=== PATIENT | female | born 1980 | race Caucasian/White ===

== ENCOUNTER 2018-02-03 13:14 | Emergency (ER) | payer MEDICARE ==
[~2018-02-03] VITALS: Ht 167.6 cm; Wt 126.0 kg
[2018-02-03] MEDS ORDERED: NITROGLYCERIN SUBLINGUAL 0.4 MG BOTTLE OF 25. SL PRN (13:30)
--- NOTE | 2018-02-03 13:50 | RAD ---
EXAM: CHEST 1 VIEW History: Chest pain COMPARISON: 01/14/2012 TECHNIQUE: Single portable radiograph of the chest FINDINGS: Low lung volumes and technique accentuates heart size and pulmonary vascularity. Mild cardiomegaly. Left-sided cardiac pacer is unchanged. The lungs appear clear. IMPRESSION: No radiographic evidence of an acute cardiopulmonary process. Electronically signed by: Vinod Mclaughlin MD (02/03/2018 1:46 PM) [id number]
[2018-02-03 13:57] LABS: BASO # 0.4 x10^3/uL (0.0-0.2); BASO % 3 % (0-3); EOS # 0.5 x10^3/uL (0.0-0.7); EOS % 4 % (0-3); HEMATOCRIT 42.2 % (36.0-47.0); HEMOGLOBIN 14.3 g/dL (12.0-15.5); LYMPH % 28 % (24-48); MEAN CORPUSCULAR HEMOGLOBIN 29 pg (25-35); MEAN CORPUSCULAR HGB CONC 34 g/dL (31-37); MEAN CORPUSCULAR VOLUME 86 fL (79-100); MONO # 0.9 x10^3/uL (0.0-1.1); MONO % 8 % (0-9); NEUT # 6.1 x10^3uL (1.8-7.7); NEUT % 56 % (31-73); PLATELET COUNT 372 x10^3/uL (140-400); RED BLOOD COUNT 4.94 x10^6/uL (3.50-5.40); RED CELL DISTRIBUTION WIDTH 13.9 % (11.5-14.5); WHITE BLOOD COUNT 10.7 x10^3/uL (4.0-11.0)
[2018-02-03 14:11] LABS: ALBUMIN 3.9 g/dL (3.4-5.0); ALBUMIN/GLOBULIN RATIO 0.8 (1.0-1.7); CALCIUM 9.7 mg/dL (8.5-10.1); CREATININE 0.9 mg/dL (0.6-1.0); GFR 70.1; MAGNESIUM 1.8 mg/dL (1.8-2.4); TOTAL BILIRUBIN 0.5 mg/dL (0.2-1.0); TOTAL PROTEIN 8.7 g/dL (6.4-8.2)
[2018-02-03 14:23] LABS: % BASOS 1 % (0-3); % EOS 4 % (0-5); % LYMPHS 20 % (24-48); % MONOS 12 % (0-10); % SEGS 60 % (35-66); PLT ESTIMATE INCREASED (ADEQUATE)
[2018-02-03 14:25] LABS: % ATYL 3 % (0-0)
[2018-02-03 15:17] VITALS: BP 118/56
--- NOTE | 2018-02-03 15:33 | PHYS DOC ---
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 Patient complaining of shortness of breath, dizziness, patient with episodes of chest pain that usually lasts about 2 seconds and reported every 2 minutes. Patient denies fever and chills, cough and congestion, focal neuro deficit. Patient states she has had episodes of chest pain frequently but today her chest pain was more frequent than her usual. Patient rated the pain 6/10 that decreased to 4/10 at arrival to ER. Review of Systems Review of Systems Constitutional: Denies fever or chills [] Eyes: Denies change in visual acuity, redness, or eye pain [] HENT: Denies nasal congestion or sore throat [] Respiratory: Denies cough, reports shortness of breath [] Cardiovascular: No additional information not addressed in HPI [] GI: Denies abdominal pain, nausea, vomiting, bloody stools or diarrhea [] : Denies dysuria or hematuria [] Musculoskeletal: Denies back pain or joint pain [] Integument: Denies rash or skin lesions [] Neurologic: Denies headache, focal weakness or sensory changes [] Endocrine: Denies polyuria or polydipsia [] All other systems were reviewed and found to be within normal limits, except as documented in this note. Current Medications Current Medications Current Medications Medications (Trade) Dose Ordered Sig/Brandin Start Time Stop Time Status Last Admin Dose Admin Nitroglycerin (Nitrostat) 0.4 mg PRN Q5MIN PRN 02/03/18 13:30 02/04/18 13:29 02/03/18 13:55 0.4 MG Allergies Allergies Allergies Coded Allergies Type Severity Reaction Last Updated Verified No Known Drug Allergies 02/03/18 No Physical Exam Physical Exam Constitutional: Well developed, well nourished, no acute distress, non-toxic appearance. [] HENT: Normocephalic, atraumatic, bilateral external ears normal, oropharynx moist, no oral exudates, nose normal. [] Eyes: PERRLA, EOMI, conjunctiva normal, no discharge. [] Neck: Normal range of motion, no tenderness, supple, no stridor. [] Cardiovascular:Heart rate regular rhythm, no murmur [] Lungs & Thorax: Bilateral breath sounds clear to auscultation, reproducible substernal pain [] Abdomen: Bowel sounds normal, soft, no tenderness, no masses, no pulsatile masses. [] Skin: Warm, dry, no erythema, no rash. [] Back: No tenderness, no CVA tenderness. [] Extremities: No tenderness, no cyanosis, no clubbing, ROM intact, no edema. [] Neurologic: Alert and oriented X 3, normal motor function, normal sensory function, no focal deficits noted. [] Psychologic: Affect normal, judgement normal, mood normal. [] Current Patient Data Vital Signs Vital Signs Date Time Temp Pulse Resp B/P (MAP) Pulse Ox O2 Delivery O2 Flow Rate FiO2 02/03/18 13:55 60 128/65 Lab Results Laboratory Tests Test 02/03/18 13:33 White Blood Count 10.7 x10^3/uL (4.0-11.0) Red Blood Count 4.94 x10^6/uL (3.50-5.40) Hemoglobin 14.3 g/dL (12.0-15.5) Hematocrit 42.2 % (36.0-47.0) Mean Corpuscular Volume 86 fL (79-100) Mean Corpuscular Hemoglobin 29 pg (25-35) Mean Corpuscular Hemoglobin Concent 34 g/dL (31-37) Red Cell Distribution Width 13.9 % (11.5-14.5) Platelet Count 372 x10^3/uL (140-400) Neutrophils (%) (Auto) 56 % (31-73) Lymphocytes (%) (Auto) 28 % (24-48) Monocytes (%) (Auto) 8 % (0-9) Eosinophils (%) (Auto) 4 % (0-3) H Basophils (%) (Auto) 3 % (0-3) Neutrophils # (Auto) 6.1 x10^3uL (1.8-7.7) Lymphocytes # (Auto) 3.0 x10^3/uL (1.0-4.8) Monocytes # (Auto) 0.9 x10^3/uL (0.0-1.1) Eosinophils # (Auto) 0.5 x10^3/uL (0.0-0.7) Basophils # (Auto) 0.4 x10^3/uL (0.0-0.2) H Segmented Neutrophils % 60 % (35-66) Lymphocytes % 20 % (24-48) L Atypical Lymphocytes % (Manual) 3 % (0-0) H Monocytes % 12 % (0-10) H Eosinophils % 4 % (0-5) Basophils % 1 % (0-3) Platelet Estimate Increased (ADEQUATE) Large Platelets Occ Prothrombin Time 10.9 SEC (9.4-11.4) Prothrombin Time INR 1.1 (0.9-1.1) D-Dimer (Bethanie) 0.44 mg/L (0.00-0.50) Sodium Level 140 mmol/L (136-145) Potassium Level 4.0 mmol/L (3.5-5.1) Chloride Level 106 mmol/L (98-107) Carbon Dioxide Level 24 mmol/L (21-32) Anion Gap 10 (6-14) Blood Urea Nitrogen 12 mg/dL (7-20) Creatinine 0.9 mg/dL (0.6-1.0) Estimated GFR (Cockcroft-Gault) 70.1 BUN/Creatinine Ratio 13 (6-20) Glucose Level 90 mg/dL (70-99) Calcium Level 9.7 mg/dL (8.5-10.1) Magnesium Level 1.8 mg/dL (1.8-2.4) Total Bilirubin 0.5 mg/dL (0.2-1.0) Aspartate Amino Transferase (AST) 23 U/L (15-37) Alanine Aminotransferase (ALT) 26 U/L (14-59) Alkaline Phosphatase 69 U/L (46-116) Creatine Kinase 99 U/L (26-192) Creatine Kinase MB (Mass) 0.8 ng/mL (0.0-3.6) Creatine Kinase MB Relative Index 0.8 % (0-4) Troponin I Quantitative < 0.017 ng/mL (0-0.055) JM-Bad-W-Type Natriuretic Peptide 165 pg/mL (0-124) H Total Protein 8.7 g/dL (6.4-8.2) H Albumin 3.9 g/dL (3.4-5.0) Albumin/Globulin Ratio 0.8 (1.0-1.7) L Lipase 299 U/L (73-393) EKG EKG EKG interpreted by me. EKG at 1324 showed normal sinus rhythm at rate of 60, abnormal right axis deviation, RVH, inverted T in anteroseptal leads, no acute ST and T-wave abnormalities.[] Radiology/Procedures Radiology/Procedures [][address] [address] IMAGING REPORT Signed PATIENT: WM SHAFFER ACCOUNT: [id number] : 1980 LOCATION: ER AGE: 37 SEX: F EXAM STATUS: REG ER ORD. PHYSICIAN: KISHA SINGER MD REASON: chest pain PROCEDURE: PORTABLE CHEST 1V EXAM: CHEST 1 VIEW History: Chest pain COMPARISON: 01/14/2012 TECHNIQUE: Single portable radiograph of the chest FINDINGS: Low lung volumes and technique accentuates heart size and pulmonary vascularity. Mild cardiomegaly. Left-sided cardiac pacer is unchanged. The lungs appear clear. IMPRESSION: No radiographic evidence of an acute cardiopulmonary process. 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 Patient did not have any cardiac risk factor and had unremarkable labs including d-dimer. Patient was seen by her deputy editor in chief on December 31 with unremarkable evaluation. Patient instructed to to follow up with Dr. Scott her deputy editor in chief in 3-5 days and return to ER if not getting better. Dragon Disclaimer Dragon Disclaimer This electronic medical record was generated, in whole or in part, using a voice recognition dictation system. Departure Departure: Impression: Primary Impression: Musculoskeletal chest pain Additional Impression: Transposition of great vessels Disposition: HOME, SELF-CARE (at 1530) Condition: IMPROVED Referrals: DELFINA GRAY (PCP) MAGED SCOTT MD Patient Instructions: Musculoskeletal Pain Additional Instructions: Follow-up with your deputy editor in chief in 2 or 3 days Return to ER if not getting better Problem Qualifiers KISHA SINGER MD Feb 03, 2018 15:33
--- NOTE | 2018-02-04 06:43 | EKG ---
[address] [address] Test Date: 2018-02-03 Test Time: 13:24:01 Pat Name: WM SHAFFER Department: Room: Gender: F Mangle Tender Cloth: : 1980 Requested By: KISHA SINGER Order Number: [id number] Reading MD: Rafael Scott MD Measurements Intervals [place] Rate: 60 P: 0 OR: 204 QRS: 126 QRSD: 102 T: 51 QT: 426 QTc: 430 Interpretive Statements SUSPECT SINUS RHYTHM JUNCTIONAL RHYTHM CANNOT BE RULED OUT Electronically Signed On 02-06-2018 15:15:48 CDT by Rafael Scott MD
== END 2018-02-03 16:08 | disposition home or self-care (01) ==
LOC: ER 13:14
DX: R07.2 Precordial pain (principal); R42 Dizziness and giddiness; Q20.3 Discordant ventriculoarterial connection; Z95.0 Presence of cardiac pacemaker
CPT/HCPCS: 36415; 71045; 80053; 82553; 83690; 83735; 83880; 84484; 85007; 85025; 85379; 85610; 93005; 99285-25

== ENCOUNTER → 2018-08-29 | Outpatient (CLI) | payer MEDICARE ==
[~2018-08-29] MED LIST: IOHEXOL 240 MG/ML 50ML VIAL. ONE; IOHEXOL 300 MG/ML 75 ML VIAL. IV ONE
--- NOTE | 2018-08-29 12:19 | RAD ---
CT ABD PELV W/ORAL IV CONTRAST Indication: ABD PAIN RECTAL BLEEDING Exposure: One or more of the following individualized dose reduction techniques were utilized for this examination: 1. Automated exposure control 2. Adjustment of the mA and/or kV according to patient size 3. Use of iterative reconstruction technique. Comparison: None are available. Contrast: Intravenous contrast was given. Oral contrast was given. Findings: Lung bases are clear. The uppermost liver is obscured by some artifact from cardiac device. Liver is enlarged, 21 cm cephalocaudal. Liver slightly hypodense suggesting fatty infiltration. Spleen unremarkable. Pancreas unremarkable. No adrenal mass. Kidneys demonstrate symmetric enhancement without focal lesion or hydronephrosis. No calcified gallstone. Aorta nonaneurysmal. Small inguinal, retroperitoneal lymph nodes, without evidence of pathologic enlargement. Mildly enlarged mesenteric lymph nodes, largest measures 1 cm short axis. Mild stranding in the central mesenteric fat. No evidence of bowel obstruction. Mild stool through the colon. No evidence of acute colitis. A structure which may represent a normal appendix is partially seen but is not definitive. No inflammatory type stranding or fluid is seen in the right lower quadrant. No significant pelvic mass. Urinary bladder unremarkable. Mild degenerative changes of the visualized spine. Mild anterior wedging of the approximate T9 vertebrae, could be due to old mild fracture. Degenerative changes at the left hip. IMPRESSION: 1. Hepatomegaly with mild fatty infiltration. 2. Mild mesenteric lymph node enlargement with mild fatty stranding of the mesentery. May be inflammatory or infectious, consider mesenteric adenitis. Uncommonly, lymphoma can present in this manner, recommend follow-up CT abdomen pelvis in 3 months. 3. Mild anterior wedging of the approximate T9 vertebrae, suggesting old mild fracture. 4. Primary osteoarthritis of the left hip. Electronically signed by: Brock Haynes MD (08/29/2018 12:16 PM) [facility]
== END | disposition home or self-care (01) ==
LOC: CT 09:55
PROVIDERS: ATTEND Physician Assistant
DX: K76.0 Fatty (change of) liver, not elsewhere classified (principal); M16.12 Unilateral primary osteoarthritis, left hip; R16.0 Hepatomegaly, not elsewhere classified; R59.0 Localized enlarged lymph nodes; Z95.0 Presence of cardiac pacemaker
CPT/HCPCS: 74177; Q9967

== ENCOUNTER → 2019-06-11 | Outpatient (CLI) | payer MEDICARE ==
--- NOTE | 2019-06-11 16:29 | RAD ---
EXAM: Pelvic sonogram. HISTORY: Menorrhagia. TECHNIQUE: Transvaginal sonographic imaging of the pelvis was performed. COMPARISON: None. FINDINGS: The exam is limited due to patient body habitus and bowel gas. The uterus measures 10.4 x 5.3 x 5.8 cm. The endometrial stripe measures 10 mm in thickness. The ovaries are obscured due to bowel. No pelvic free fluid is seen. IMPRESSION: 1. Obscured ovaries due to bowel gas. 2. Otherwise, unremarkable pelvic sonogram. The endometrial stripe is within normal limits in thickness for the premenopausal status of the patient. Electronically signed by: Karine Ahumada MD (06/11/2019 4:26 PM) [facility]
[2019-06-11 16:49] LABS: ALBUMIN/GLOBULIN RATIO 0.9 (1.0-1.7); CALCIUM 8.8 mg/dL (8.5-10.1); CREATININE 0.7 mg/dL (0.6-1.0); GFR 92.7; POTASSIUM 3.5 mmol/L (3.5-5.1); TOTAL BILIRUBIN 0.6 mg/dL (0.2-1.0); TOTAL PROTEIN 8.6 g/dL (6.4-8.2)
[2019-06-12 01:06] LABS: DHEA SO4 72.2 ug/dL (57.3-279.2); ESTRADIOL LEVEL 43.3 pg/mL (.); FSH 5.3 mIU/mL (.); HEMOGLOBIN A1C 6.4 % (4.8-5.6); LUTEINIZING HORMONE 4.7 mIU/mL (.)
[2019-06-12 13:12] LABS: THYROID STIM HORMONE (TSH) 2.488 uIU/mL (0.358-3.740)
[2019-06-14 07:07] LABS: TESTOSTERONE FREE 0.19 ng/dL (0.10-0.85); TESTOSTERONE TOTAL 16 ng/dL (8-48)
== END | disposition home or self-care (01) ==
LOC: US 13:45
PROVIDERS: ATTEND Obstetrics & Gynecology
DX: N92.0 Excessive and frequent menstruation with regular cycle (principal); N94.6 Dysmenorrhea, unspecified; R10.2 Pelvic and perineal pain; R79.89 Other specified abnormal findings of blood chemistry
CPT/HCPCS: 36415; 76830; 76856; 80053; 80061; 82627; 82670; 83001; 83002; 83036; 84402; 84403; 84443

== ENCOUNTER 2019-08-11 17:46 | Inpatient (IN) | payer MEDICARE ==
[~2019-08-11] VITALS: Ht 167.6 cm; Wt 135.5 kg
[2019-08-11] MEDS ORDERED: IV RINGERS SOLUTION,LACTATED 1,000 ML IV SCH (18:03)
--- NOTE | 2019-08-11 18:03 | PHYS DOC ---
Past History Past Medical History: No Pertinent History Past Surgical History: Pacemaker Smoking: Non-smoker Alcohol Use: None Drug Use: None Adult General Chief Complaint Chief Complaint: ".. I ve been short of breath for a week..." HPI HPI Patient is a 39 year old female who presents with above hx and complaints increased dyspnea and chest discomfort. Patient has a significant history of cardiac issues starting at . Patient had transposition of age or cardiac vessels. Underwent surgical repair shortly after at [facility] Has had repeat placement pacers in 2010 and . Patient did get flu vaccination this season. Patient states her shortness of breath has increased for the past week. Patient does really follow with cardiology. She reports she has been compliant with all her medications. No specific ill contacts. No recent travel. Review of Systems Review of Systems Constitutional: Denies fever or chills [] Eyes: Denies change in visual acuity, redness, or eye pain [] HENT: Denies nasal congestion or sore throat [] Respiratory: Complaints of shortness of breath [] Cardiovascular: No additional information not addressed in HPI [] GI: Denies abdominal pain, nausea, vomiting, bloody stools or diarrhea [] : Denies dysuria or hematuria [] Musculoskeletal: Denies back pain or joint pain [] Integument: Denies rash or skin lesions [] Neurologic: Denies headache, focal weakness or sensory changes [] Endocrine: Denies polyuria or polydipsia [] All other systems were reviewed and found to be within normal limits, except as documented in this note. Family History Family History Noncontributory to presentation Current Medications Current Medications See nursing for home meds Allergies Allergies Allergies Coded Allergies Type Severity Reaction Last Updated Verified adhesive tape Allergy Mild Rash 08/29/18 Yes Physical Exam Physical Exam Constitutional: Moderate acute distress, non-toxic appearance. [] HENT: Normocephalic, atraumatic, bilateral external ears normal, oropharynx moist, no oral exudates, nose normal. [] Eyes: PERRLA, EOMI, conjunctiva normal, no discharge. [] Neck: Normal range of motion, no tenderness, supple, no stridor. [] Cardiovascular:Heart rate regular rhythm, no murmur []monitor shows a paced rhythm. PMI to the left Lungs & Thorax: Bilateral breath sounds with apex with few scattered wheezes on auscultation []old surgery scars Abdomen: Bowel sounds normal, soft, no tenderness, no masses, no pulsatile masses. Morbid obesity Skin: Warm, dry, no erythema, no rash. [] Back: No tenderness, no CVA tenderness. [] Extremities: No tenderness, no cyanosis, no clubbing, ROM intact, bilateral ankle edema. [] No cording appreciated Neurologic: Alert and oriented X 3, normal motor function, normal sensory function, no focal deficits noted. [] Psychologic: Affect anxious, judgement normal, mood normal. [] EKG EKG My interpretation of EKG shows a paced rhythm at 67 bpm. RVH and conduction laying Radiology/Procedures Radiology/Procedures [][place] [address] IMAGING REPORT Signed PATIENT: WM SHAFFER ACCOUNT: [id number] : 1980 LOCATION: ER AGE: 39 SEX: F EXAM STATUS: REG ER ORD. PHYSICIAN: ANTONIO MORALEZ MD REASON: Chest pain PROCEDURE: CHEST PA & LATERAL CHEST PA LATERAL History: Chest pain Comparison: February 03, 2018 Findings: 2 views of the chest are submitted. There again has been a median sternotomy. There is again left electronic cardiac device. There is no new lobar consolidation, pleural fluid, or pneumothorax. Pericardial cardiac silhouette is again enlarged. Impression: 1. No acute radiographic abnormality is identified. Pericardial cardiac silhouette is again enlarged. Electronically signed by: Patricio Corey MD (08/11/2019 7:12 PM) [id number] DICTATED AND SIGNED BY: PATRICIO COREY MD DATE: 08/11/191911 CC: ANTONIO MORALEZ MD; DELFINA GRAY ~ Course & Med Decision Making Course & Med Decision Making Pertinent Labs and Imaging studies reviewed. (See chart for details) Admit to Dr. Samuel and Cardiology consult Heart Score 4-5 Impression; 1. Chest Pain 2. Dyspnea 3. Mild Leukocytosis 4. Hx. Transposition of Great Vessels at 5. Pacer placement 06/2010 and 06/2017 [] Dragon Disclaimer Dragon Disclaimer This electronic medical record was generated, in whole or in part, using a voice recognition dictation system. Departure Departure: Disposition: 01 HOME/RESIDENCE PRIOR TO ADM Condition: STABLE Referrals: DELFINA GRAY (PCP) Jason Disclaimer This chart was dictated in whole or in part using Voice Recognition software in a busy, high-work load, and often noisy Emergency Department environment. It may contain unintended and wholly unrecognized errors or omissions. ANTONIO MORALEZ MD Aug 11, 2019 18:02
[2019-08-11] MEDS ORDERED: ASPIRIN 81 MG TAB.CHEW PO ONE (18:15)
[2019-08-11 18:38] LABS: BASO # 0.1 x10^3/uL (0.0-0.2); BASO % 1 % (0-3); EOS # 0.5 x10^3/uL (0.0-0.7); EOS % 4 % (0-3); HEMATOCRIT 43.1 % (36.0-47.0); LYMPH # 3.8 x10^3/uL (1.0-4.8); LYMPH % 31 % (24-48); MEAN CORPUSCULAR HEMOGLOBIN 29 pg (25-35); MEAN CORPUSCULAR HGB CONC 33 g/dL (31-37); MEAN CORPUSCULAR VOLUME 88 fL (79-100); MONO # 1.1 x10^3/uL (0.0-1.1); MONO % 9 % (0-9); NEUT # 6.7 x10^3uL (1.8-7.7); NEUT % 55 % (31-73); PLATELET COUNT 349 x10^3/uL (140-400); RED CELL DISTRIBUTION WIDTH 13.9 % (11.5-14.5); WHITE BLOOD COUNT 12.2 x10^3/uL (4.0-11.0)
[2019-08-11 18:39] LABS: CALCIUM 9.6 mg/dL (8.5-10.1); CREATININE 0.7 mg/dL (0.6-1.0); GFR 92.7; POTASSIUM 4.1 mmol/L (3.5-5.1)
[2019-08-11 18:51] LABS: ALBUMIN 4.2 g/dL (3.4-5.0); DIRECT BILIRUBIN 0.1 mg/dL (0.0-0.2); MAGNESIUM 1.7 mg/dL (1.8-2.4); TOTAL BILIRUBIN 0.3 mg/dL (0.2-1.0); TOTAL PROTEIN 8.5 g/dL (6.4-8.2)
--- NOTE | 2019-08-11 19:15 | RAD ---
CHEST PA LATERAL History: Chest pain Comparison: February 03, 2018 Findings: 2 views of the chest are submitted. There again has been a median sternotomy. There is again left electronic cardiac device. There is no new lobar consolidation, pleural fluid, or pneumothorax. Pericardial cardiac silhouette is again enlarged. Impression: 1. No acute radiographic abnormality is identified. Pericardial cardiac silhouette is again enlarged. Electronically signed by: Rangel Corey MD (08/11/2019 7:12 PM) [id number]
[2019-08-11 19:50] LABS: AMPHETAMINE/METHAMPHETAMINE NEG (NEG); BARBITURATES NEG (NEG); BENZODIAZEPINES NEG (NEG); CANNABINOIDS NEG (NEG); COCAINE NEG (NEG); METHADONE NEG (NEG); OPIATES NEG (NEG); PHENCYCLIDINE NEG (NEG)
[2019-08-11 20:22] LABS: BACTERIA,URINE MOD /HPF (0-FEW); BILIRUBIN,URINE NEG (NEG); CLARITY,URINE HAZY; COLOR,URINE STRAW; GLUCOSE,URINE NEG (NEG); NITRITE,URINE NEG (NEG); RBC,URINE RARE /HPF (0-2); SQUAMOUS EPITHELIAL CELL,UR MOD /LPF; UROBILINOGEN,URINE 0.2 mg/dL (0.2 mg/dL); WBC,URINE OCC /HPF (0-4)
[2019-08-12] MEDS ORDERED: ONDANSETRON PF 4 MG/2 ML VIAL. IV PRN
[2019-08-12] MEDS ORDERED: ACETAMINOPHEN 325 MG TABLET PO PRN
[2019-08-12 00:01] LABS: INFLUENZA A PATIENT NEGATIVE (NEGATIVE); INFLUENZA B PATIENT NEGATIVE (NEGATIVE)
[2019-08-12 02:49] VITALS: BP 161/97
[2019-08-12] MEDS ORDERED: CARV25TA PO (03:11)
[2019-08-12] MEDS ORDERED: METF500T11 PO (03:11)
--- NOTE | 2019-08-12 03:56 | EKG ---
[address] [address] Test Date: 2019-08-11 Test Time: 17:55:51 Pat Name: WM SHAFFER Department: Room: Gender: F Kier Pleater: : 1980 Requested By: ANTONIO MORALEZ Order Number: [id number] Reading MD: Measurements Intervals [place] Rate: 67 P: 0 [place]: 138 QRS: 27 QRSD: 114 T: -156 QT: 404 QTc: 430 Interpretive Statements SINUS RHYTHM R-S TRANSITION ZONE IN V LEADS DISPLACED TO THE RIGHT RVH WITH REPOLARIZATION ABNORMALITY QRS(T) CONTOUR ABNORMALITY CONSISTENT WITH INFERIOR INFARCT PROBABLY OLD ABNORMAL ECG RI6.01 No previous ECG available for comparison
[2019-08-12] MEDS ORDERED: IPRATRPIUM/ALBUTEROL 0.5/2.5MG 3 ML NEBU. ONE (04:56)
[2019-08-12] MEDS: IPRATRPIUM/ALBUTEROL 0.5/2.5MG 3 ML NEBU. NEB SCH ×2 (05:19→10:28)
[2019-08-12 05:28] VITALS: BP 143/98
[2019-08-12] MEDS ORDERED: metFORMIN XR 500 MG TAB.ER.24H PO SCH (08:00)
--- NOTE | 2019-08-12 08:09 | PDOC2 ---
CARDIAC CONSULT DATE OF CONSULT Date Of Consult DATE: 08/12/19 TIME: 08:02 REASON FOR CONSULT Reason for Consult Dyspnea REFERRING PHYSICIAN Referring Physician Dr. Mckeon SOURCE Source: Chart review, Patient HPI History of Present Illness This is a 39 yo female who presented secondary to shortness of breath and chest tightness. Patient reports she has experienced tightness in her central chest for the last week. Yesterday afternoon, began having intermittent stabbing pain in her central chest. [place] as if it were hard to breathe. Was slightly diaphoretic, dizzy, and had intermittent blurred vision. No palpitation or nausea/vomiting. Pain did not radiated. Reports stabbing pain would be worse with deep breathing. No recent fevers/illness. Does have slight cough and feels like she has thick mucous in her throat. 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 Reports chronic chest pain, which she reports to be differently from what she is currently experiencing. Was referred to congenital heart defect clinic for follow up, but has not schedule appointment as life got busy. 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 [facility])), Other FAMILY HISTORY Family History: Diabetes, Heart Disease, Hypertension SOCIAL HISTORY Smoke: No ALCOHOL: none Drugs: None Lives: with Family CURRENT MEDICATIONS Current Medications Current Medications Aspirin (Children'S Aspirin) 324 mg 1X ONCE PO Last administered on 08/11/19at 18:29; Start 08/11/19 at 18:15; Stop 08/11/19 at 18:16; Status DC Lactated Ringer's 1,000 ml @ 100 mls/hr Q10H IV Last administered on 08/11/19at 18:29; Start 08/11/19 at 18:03; Stop 08/12/19 at 04:02; Status DC Ondansetron HCl (Zofran) 4 mg PRN Q4HRS PRN IV NAUSEA/VOMITING; Start 08/12/19 at 00:00; Stop 08/12/19 at 23:59 Acetaminophen (Tylenol) 650 mg PRN Q4HRS PRN PO FEVER; Start 08/12/19 at 00:00; Stop 08/12/19 at 23:59 Albuterol/ Ipratropium (Duoneb) 3 ml RTQID NEB Last administered on 08/12/19at 05:19; Start 08/12/19 at 08:00; Stop 08/13/19 at 07:59 Aspirin (Children'S Aspirin) 81 mg DAILY PO ; Start 08/12/19 at 09:00 Influenza Virus Vaccine Quadrival (Afluria Quad 2019- (3yr Up) Syringe) 0.5 ml ONCE ONCE VAX IM ; Start 08/12/19 at 09:00; Stop 08/12/19 at 09:01 Metformin HCl (Glucophage Xr) 500 mg DAILYWBKFT PO ; Start 08/12/19 at 08:00 Carvedilol (Coreg) 12.5 mg BIDWMEALS PO ; Start 08/12/19 at 08:00 Albuterol/ Ipratropium (Duoneb) 3 ml STK-MED ONCE .ROUTE ; Start 08/12/19 at 04:56; Stop 08/12/19 at 04:56; Status DC Active Scripts Active Reported Metformin Hcl Er (Metformin Hcl) 500 Mg Tab.er.24h 500 Mg PO DAILYWBKFT Coreg (Carvedilol) 25 Mg Tablet 12.5 Mg PO BID ALLERGIES Allergies: Coded Allergies: adhesive tape (Verified Allergy, Mild, Rash, 08/29/18) PAPER TAPE IS FINE ROS Review of Systems 14 point ROS conducted with pertinent positives noted above in HPI PHYSICAL EXAM General: Alert, Oriented X3, Cooperative, No acute distress HEENT: Atraumatic, Mucous membr. moist/pink Lungs: Clear to auscultation, Normal air movement Heart: Regular rate, Normal S1, Normal S2 Abdomen: Soft, No tenderness Extremities: No edema, Normal pulses Skin: No breakdown Neuro: Normal speech, Sensation intact Psych/Mental Status: Mental status NL, Mood NL MUSCULOSKELETAL: Osteoarthritic changes both hands VITALS Vital Signs Vital Signs Date Time Temp Pulse Resp B/P (MAP) Pulse Ox O2 Delivery O2 Flow Rate FiO2 08/12/19 05:28 97.7 60 18 143/98 (113) 97 Room Air 08/12/19 05:20 2.0 LABS LABS Laboratory Tests Test 08/11/19 17:50 2/18/20 19:10 08/11/19 23:20 08/12/19 02:40 White Blood Count 12.2 x10^3/uL (4.0-11.0) Red Blood Count 4.90 x10^6/uL (3.50-5.40) Hemoglobin 14.0 g/dL (12.0-15.5) Hematocrit 43.1 % (36.0-47.0) Mean Corpuscular Volume 88 fL (79-100) Mean Corpuscular Hemoglobin 29 pg (25-35) Mean Corpuscular Hemoglobin Concent 33 g/dL (31-37) Red Cell Distribution Width 13.9 % (11.5-14.5) Platelet Count 349 x10^3/uL (140-400) Neutrophils (%) (Auto) 55 % (31-73) Lymphocytes (%) (Auto) 31 % (24-48) Monocytes (%) (Auto) 9 % (0-9) Eosinophils (%) (Auto) 4 % (0-3) Basophils (%) (Auto) 1 % (0-3) Neutrophils # (Auto) 6.7 x10^3uL (1.8-7.7) Lymphocytes # (Auto) 3.8 x10^3/uL (1.0-4.8) Monocytes # (Auto) 1.1 x10^3/uL (0.0-1.1) Eosinophils # (Auto) 0.5 x10^3/uL (0.0-0.7) Basophils # (Auto) 0.1 x10^3/uL (0.0-0.2) Prothrombin Time 10.6 SEC (9.4-11.4) Prothromb Time International Ratio 1.0 (0.9-1.1) Activated Partial Thromboplast Time 31 SEC (23-33) D-Dimer (Bethanie) 0.34 mg/L (0.00-0.50) Sodium Level 141 mmol/L (136-145) Potassium Level 4.1 mmol/L (3.5-5.1) Chloride Level 103 mmol/L (98-107) Carbon Dioxide Level 24 mmol/L (21-32) Anion Gap 14 (6-14) Blood Urea Nitrogen 8 mg/dL (7-20) Creatinine 0.7 mg/dL (0.6-1.0) Estimated GFR (Cockcroft-Gault) 92.7 Glucose Level 110 mg/dL (70-99) Calcium Level 9.6 mg/dL (8.5-10.1) Magnesium Level 1.7 mg/dL (1.8-2.4) Total Bilirubin 0.3 mg/dL (0.2-1.0) Direct Bilirubin 0.1 mg/dL (0.0-0.2) Aspartate Amino Transf (AST/SGOT) 39 U/L (15-37) Alanine Aminotransferase (ALT/SGPT) 57 U/L (14-59) Alkaline Phosphatase 70 U/L (46-116) Creatine Kinase 110 U/L (26-192) Troponin I Quantitative < 0.017 ng/mL (0-0.055) < 0.017 ng/mL (0-0.055) HF-Tgl-E-Type Natriuretic Peptide 232 pg/mL (0-124) Total Protein 8.5 g/dL (6.4-8.2) Albumin 4.2 g/dL (3.4-5.0) Lipase 282 U/L (73-393) Urine Collection Type Unknown Urine Color Straw Urine Clarity Hazy Urine pH 6.0 Urine Specific [place] 1.015 Urine Protein Neg (NEG-TRACE) Urine Glucose (UA) Neg mg/dL (NEG) Urine Ketones (Stick) Neg mg/dL (NEG) Urine Blood Neg (NEG) Urine Nitrite Neg (NEG) Urine Bilirubin Neg (NEG) Urine Urobilinogen Dipstick 0.2 mg/dL (0.2 mg/dL) Urine Leukocyte Esterase Neg (NEG) Urine RBC Rare /HPF (0-2) Urine WBC Occ /HPF (0-4) Urine Squamous Epithelial Cells Mod /LPF Urine Bacteria Mod /HPF (0-FEW) Urine Mucus Slight /LPF Urine Opiates Screen Neg (NEG) Urine Methadone Screen Neg (NEG) Urine Barbiturates Neg (NEG) Urine Phencyclidine Screen Neg (NEG) Urine Amphetamine/Methamphetamine Neg (NEG) Urine Benzodiazepines Screen Neg (NEG) Urine Cocaine Screen Neg (NEG) Urine Cannabinoids Screen Neg (NEG) Urine Ethyl Alcohol Neg (NEG) Influenza Type A (Rapid) Negative (NEGATIVE) Influenza Type B (Rapid) Negative (NEGATIVE) ECHOCARDIOGRAM Echocardiogram <Conclusion> The morphological left ventricle is normal in size and shape. No hypertrophy is noted. Left ventricular systolic function is normal. There is normal LV segmental wall motion. The morphological right ventricle (systemic ventricle) is dilated and hypertrophied. RV funtion is grossly normal. The left atrium is normal in size. The atrial baffle is not well seen. The right atrial is moderately dilated. The atrial baffle is not well seen. Doppler and Color Flow revealed mild tricuspid regurgitation. No significant valvular disease noted. DATE: 02/10/18 1140 ASSESSMENT/PLAN Assessment/Plan 1. Dyspnea, chest tightness, atypical. AMI ruled out. 2. Accelerated hypertension; ? contributing factor 3. H/o NICM s/p epicardial AICD ([facility]). FLOYD 02/08 shows LVEF recovery as noted above 4. 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 Diabetes, II 6. Hypomagnesemia 7. GERD Recommendations Resume ASA, Coreg Add lisinopril if BP remains elevated. Lipids Replace Mg Echo to assess LV systolic function Outpatient ischemic evaluation ADAN BREWER APRN Aug 12, 2019 08:09
[2019-08-12 08:30] LABS: BASO # 0.1 x10^3/uL (0.0-0.2); BASO % 1 % (0-3); EOS # 0.3 x10^3/uL (0.0-0.7); EOS % 3 % (0-3); HEMATOCRIT 41.7 % (36.0-47.0); HEMOGLOBIN 13.6 g/dL (12.0-15.5); LYMPH # 2.3 x10^3/uL (1.0-4.8); LYMPH % 22 % (24-48); MEAN CORPUSCULAR HEMOGLOBIN 29 pg (25-35); MEAN CORPUSCULAR HGB CONC 33 g/dL (31-37); MEAN CORPUSCULAR VOLUME 88 fL (79-100); MONO % 10 % (0-9); NEUT # 6.5 x10^3uL (1.8-7.7); NEUT % 64 % (31-73); PLATELET COUNT 315 x10^3/uL (140-400); RED BLOOD COUNT 4.73 x10^6/uL (3.50-5.40); RED CELL DISTRIBUTION WIDTH 13.7 % (11.5-14.5); WHITE BLOOD COUNT 10.2 x10^3/uL (4.0-11.0)
[2019-08-12] MEDS: CARVEDILOL 12.5 MG TABLET PO SCH ×2 (08:35→17:14)
[2019-08-12 08:41] LABS: CALCIUM 8.9 mg/dL (8.5-10.1); CREATININE 0.7 mg/dL (0.6-1.0); GFR 92.7; POTASSIUM 3.9 mmol/L (3.5-5.1)
[2019-08-12] MEDS ORDERED: LIDO:MAALOX 1:1 20 ML SINGLE DOSE. PO ONE (08:45)
[2019-08-12] MEDS ORDERED: NITROGLYCERIN SUBLINGUAL 0.4 MG BOTTLE OF 25. SL PRN (08:45)
[2019-08-12] MEDS ORDERED: FLU VAX QS 2019-20 (36MOS+)/PF 0.5 ML SYRINGE. VAX IM ONE (09:00)
[2019-08-12] MEDS ORDERED: ASPIRIN 81 MG TAB.CHEW PO SCH (09:00)
[2019-08-12] MEDS ORDERED: MAGNESIUM SULFATE 2GM 50 ML IV ONE (09:15)
[2019-08-12 10:54] VITALS: BP 155/93
[2019-08-12] MEDS ORDERED: PERFLUTREN PROTEIN-A MICROSPHR 0.22 MG/ML 3 ML VIAL. IV ONE (12:00)
[2019-08-12 14:45] LABS: THYROID STIM HORMONE (TSH) 2.864 uIU/mL (0.358-3.740)
[2019-08-12] MEDS ORDERED: IPRATRPIUM/ALBUTEROL 0.5/2.5MG 3 ML NEBU. NEB PRN (15:45)
--- NOTE | 2019-08-12 15:52 | HP ---
ADMIT DATE: 08/11/2019 HISTORY OF PRESENT ILLNESS: The patient is a 39-year-old female patient who came to the Emergency Room complaining of increased shortness of breath and chest discomfort. The patient stated that her shortness of breath has increased in the past week. She does have also stated that she has been compliant with all her medication. She did complain of intermittent stabbing pain in her central chest, felt as if they were hard to breathe. She was slightly diaphoretic, dizzy and had intermittent blurring of vision. No palpitation, no nausea, no vomiting. The pain did not radiate. Her pain is worse with taking a deep breath. No recent fever or illness. Does have slight cough and feels like she has thick mucus in her throat. She was evaluated in the Emergency Room and was extensively investigated. She has mild leukocytosis. Her chemistry was unremarkable except for hypomagnesemia and hyperglycemia. She also had her first set of troponin was normal at less than 0.017 and her prothrombin time, INR, aPTT and D-dimer all within normal range. She has influenza A and B were negative. She has had an EKG done in the Emergency Room, which showed that there was paced rhythm at 67 beats per minute, right ventricular hypertrophy and conduction block. She was admitted to do 2 more sets of cardiac enzymes and to consult the cardiology team. PAST MEDICAL HISTORY: Significant for transposition of the great vessels, status post atrial switch operation when she was 3 days old and 3 months old. She is also known to have congestive heart failure with cardiomyopathy, left ventricular ejection fraction recovery. She has morbid obesity, obstructive sleep apnea, on CPAP. She is known to have diabetes mellitus type 2 and colitis. PAST SURGICAL HISTORY: Significant for transposition of great vessels with atrial switch, tubal ligation, pacemaker placement. FAMILY HISTORY: Significant for breast cancer in her mother, diabetes, heart disease and hypertension. SOCIAL HISTORY: She is , has a son and a daughter. She never smoked. Does drink alcohol very occasionally. Does not use any drugs. She is currently disabled. 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 ALLERGIES: SHE IS ALLERGIC TO ADHESIVE TAPES. MEDICATIONS: She is currently on following medications: She is on carvedilol 12.5 mg twice a day and metformin 500 mg daily with breakfast. REVIEW OF SYSTEMS: As per history of present illness. PHYSICAL EXAMINATION: GENERAL: On arrival to the Emergency Room, she looked well and was clearly in no apparent respiratory distress. No pallor, jaundice, cyanosis or thyromegaly. No jugular venous distention. No limb edema. VITAL SIGNS: Her heart rate was 66, blood pressure was 182/79, temperature was 97.7, respiratory rate was 25, and oxygen saturation was 97%. HEAD, EYES, EARS, NOSE AND THROAT: Showed normocephalic, atraumatic. NECK: Supple. HEART: Showed normal first and second heart sounds. No gallop, rub or murmur. CHEST: Clear to auscultation. No crepitation or rhonchi. ABDOMEN: Distended, soft, nontender. No guarding or rigidity. No organomegaly. All hernial orifices intact. Bowel sounds normal. NEUROLOGIC: She was awake, alert, responding appropriately. All cranial nerves intact. EXTREMITIES: She moves extremities without difficulty. She ambulates without assistance or assistive devices. LABORATORY WORK: On arrival showed a white cell count of 12,200; hemoglobin 14; hematocrit 43; MCV 88 and platelet count 349,000. Her chemistry showed a serum sodium 141, potassium 4.1, chloride 103, bicarbonate 24, anion gap of 14, BUN 8, creatinine 0.7, estimated GFR was 92 mL per minute. Her glucose 110, calcium was 9.6, magnesium was 1.7. Total bilirubin, AST, ALT, alkaline phosphatase were normal. Total protein was 8.5, albumin was 4.2. Her prothrombin time, INR and aPTT were normal. D-dimer was normal at 0.34. Urinalysis was unremarkable and toxic screen was essentially negative. Her influenza A and B were negative. Her chest x-ray showed there is median sternotomy. There is again left electronic cardiac device. There is no new lobar consolidation, pleural effusion or pneumothorax. Pericardial cardiac silhouette again enlarged. The patient will be admitted. We will do 2 more sets of cardiac enzymes. Consult the Cardiology team and decide on further management accordingly. We will also check her fasting lipid profile. JINA PICKARD MD DR: AAMIR/jere JOB#: [id number] / [id number]
[2019-08-12 16:02] VITALS: BP 160/80
[2019-08-12 17:14] VITALS: BP 160/80
[2019-08-12] MEDS ORDERED: AMLO5TAB10 PO (18:21)
--- NOTE | 2019-08-12 20:27 | DS ---
DATE OF DISCHARGE: 08/12/2019 HOSPITAL COURSE: The patient is a 39-year-old female patient who was admitted with a complaint of increased shortness of breath and chest discomfort. She also have has been compliant with all her medication. Did complain of intermittent stabbing pain in her central chest. She was evaluated in the Emergency Room, has had first set of cardiac enzyme was negative and has 2 more sets of cardiac enzymes that ruled out myocardial infarction, has had her fasting lipid profile, which showed that her total cholesterol 147, LDL was 71, VLDL was 38, HDL was 38 and the ratio was 3. She was seen in consultation by the Cardiology team and has had an echocardiogram done and the floorworker lasting recommended that the patient can be discharged home with addition of amlodipine 5 mg once a day and with the arrangement she will be seen as an outpatient for ischemic workup. PHYSICAL EXAMINATION: GENERAL: When I saw her this afternoon, she looked well and was clearly in no apparent respiratory distress. VITAL SIGNS: Her heart rate was 60, blood pressure was 160/80, temperature was 98.2, respiratory rate 20, and oxygen saturation was 95%. HEAD, EYES, EARS, NOSE AND THROAT: Showed normocephalic, atraumatic. NECK: Supple. CARDIAC: Normal first and second heart sounds. No gallop or murmur. CHEST: Clear to auscultation. No crepitation or rhonchi. ABDOMEN: Distended, soft, nontender. NEUROLOGIC: She is grossly intact. LABORATORY DATA: Essentially unremarkable. She has 3 sets of cardiac enzymes that are ruled out myocardial infarction. Her prothrombin time, INR, aPTT and D-dimer are all normal. Her influenza A and B were negative. Urinalysis was unremarkable and toxic screen was negative. DISCHARGE MEDICATIONS: She was discharged home to continue on amlodipine 5 mg once a day, carvedilol 12.5 mg twice a day and metformin 500 mg daily. FINAL DISCHARGE DIAGNOSES: 1. Chest pain. 2. Acute myocardial infarction ruled out. 3. Accelerated hypertension, for which amlodipine was added. 4. Nonischemic cardiomyopathy. 5. Status post AICD. 6. 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 7. Type 2 diabetes mellitus, on oral hypoglycemic agent. 8. Hypomagnesemia, resolved. 9. Gastroesophageal reflux disease. JINA PICKARD MD DR: Keturah JOB#: [id number] / [id number]
--- NOTE | 2019-08-13 13:37 | CARD ---
MR#: [id number] Date of Study: 08/12/2019 Ordering Physician: ADAN BREWER, Referring Physician: ADAN BREWER, Tech: Brandy Sargent APPROVED REPORT EXAM: Two-dimensional and M-mode echocardiogram with Doppler and color Doppler. Other Information Quality : PoorHR: 60bpm Technically limited study due to body habitus. Echo Enhancing Agent Indication: Endocardial border delineation Agent/Amount Used: [id number] Surgery/Intervention Pacemaker: Date: 2010 2D DIMENSIONS IVSd1.5 (0.7-1.1cm)LVDd5.4 (3.9-5.9cm) LVOT Diameter2.1 (1.8-2.4cm)PWd1.4 (0.7-1.1cm) LVDs3.7 (2.5-4.0cm)FS (%) 30.6 % SV79.7 ml Pulmonary Valve PV Peak [id number]/sPV Peak Grad.5mmHg Tricuspid Valve TR P. [id number] LEFT VENTRICLE Technically limited and difficult study aided by the use of Optison to evaluate LV function. The left ventricle is normal size. There is mild to moderate concentric left ventricular hypertrophy. The sys tolic function is mildly impaired. The Ejection Fraction is estimated at 45%. There is mild global hy pokinesis of the left ventricle. RIGHT VENTRICLE The right ventricle is mildly dilated. There is normal right ventricular wall thickness. ATRIA The left atrium is not well visualized. The right atrium is mild to moderately dilated. AORTIC VALVE The aortic valve is not well visualized. Doppler and color-flow analysis was not performed. LTD echo. MITRAL VALVE The mitral valve is not well visualized. TRICUSPID VALVE The tricuspid valve is not well visualized. GREAT VESSELS The aortic root is normal in size. The IVC was not visualized. PERICARDIAL EFFUSION There is no evidence of significant pericardial effusion. Critical Notification Critical Value: No <Conclusion> Technically limited and difficult study aided by the use of Optison to evaluate LV function. The left ventricle is normal size. The systolic function is mildly impaired. The Ejection Fraction is estimated at 45%. There is mild global hypokinesis of the left ventricle. There is mild to moderate concentric left ventricular hypertrophy. Signed by : Dmitri Salgado MD Electronically Approved : 08/12/2019 16:44:50
== END 2019-08-12 18:39 | disposition home or self-care (01) | DRG 392 ==
LOC: ER 17:46 → 1 SOUTH 23:30
PROVIDERS: ADMIT Internal Medicine; ATTEND Internal Medicine
DX: K21.9 Gastro-esophageal reflux disease without esophagitis (principal); I42.8 Other cardiomyopathies; Z68.42 Body mass index [BMI] 45.0-49.9, adult; D72.829 Elevated white blood cell count, unspecified; E11.65 Type 2 diabetes mellitus with hyperglycemia; E83.42 Hypomagnesemia; I11.0 Hypertensive heart disease with heart failure; I50.9 Heart failure, unspecified; E66.01 Morbid (severe) obesity due to excess calories; G47.33 Obstructive sleep apnea (adult) (pediatric); I25.10 Atherosclerotic heart disease of native coronary artery without angina pectoris; Z80.3 Family history of malignant neoplasm of breast; Z82.49 Family history of ischemic heart disease and other diseases of the circulatory system; Z83.3 Family history of diabetes mellitus; Z95.810 Presence of automatic (implantable) cardiac defibrillator; Z98.51 Tubal ligation status; Z79.84 Long term (current) use of oral hypoglycemic drugs
CPT/HCPCS: 99285; C8924; 36415; 71046; 80048; 80061; 80076; 80307; 81001; 81025; 82550; 83690; 83735; 83880; 84443; 84484; 85025; 85379; 85610; 85730; 87086; 87804; 90471; 90686; 93005; 94640; 96360; G0238; J3475; J7120; J7620